=== PATIENT | female | born 1960 | race Caucasian/White ===

== ENCOUNTER 2025-02-10 16:00 | Outpatient (CLI) | payer BC | END 2025-02-10 16:01 | disposition home or self-care (01) | LOC: CSHMAMMO 16:00 | PROVIDERS: ATTEND Specialist | DX: C50.911 Malignant neoplasm of unspecified site of right female breast (principal); N63.12 Unspecified lump in the right breast, upper inner quadrant | CPT/HCPCS: 19083; 96372; A4648; A9697 ==

== ENCOUNTER 2025-03-16 10:36 | Day surgery (SDC) | payer BC ==
[2025-03-16] MEDS ORDERED: Acetaminophen 500 MG TAB ONE (10:59)
[2025-03-16] MEDS ORDERED: Ketorolac Tromethamine 30 MG (1 mL) VIAL ONE (10:59)
[2025-03-16 11:29] LABS: #Basophils 0.03 10x3/uL (0.0-0.2); #Eosinophils 0.33 10x3/uL (0.0-0.5); #Monocytes 0.68 10x3/uL (0.0-1.1); #Neutrophils 1.53 10x3/uL (1.5-8.4); %Basophils 0.7 % (0.0-2.0); %Eosinophils 7.7 % (0.0-6.0); %Lymphocytes 39.8 % (18.0-47.0); %Monocytes 15.9 % (0.0-10.0); %Neutrophils 35.9 % (40.0-75.0); Hematocrit 39.3 % (34.9-44.5); Hemoglobin 12.9 g/dL (12.0-15.5); Mean Corpuscular Hemoglobin 29.6 pg (27.0-33.0); Mean Corpuscular Volume 90.1 fL (81.6-98.3); Platelet Count 217 10x3/uL (150-450); Red Blood Cell (RBC) Count 4.36 10x6/uL (3.90-5.03); White Blood Cell (WBC) Count 4.27 10x3/uL (3.5-10.5)
[2025-03-16 11:52] LABS: Anion Gap 10 mmol/L (10-20); BUN (Urea Nitrogen) 13 mg/dL (9.8-20.1); Calc. Creatinine Clearance 0 mL/min (70-130); Calcium 8.5 mg/dL (7.8-10.44); Carbon Dioxide 27 mmol/L (23-31); Chloride 108 mmol/L (98-107); Glucose 91 mg/dL (80-115); Potassium 3.8 mmol/L (3.5-5.1); Sodium 141 mmol/L (136-145)
[2025-03-16] MEDS ORDERED: Bupivacaine/Epinephrine 0.25% 30 ML VIAL ONE (11:59)
[2025-03-16] MEDS ORDERED: Lidocaine 2% MPF 10 ML AMP (For Epidural Use) ONE (11:59)
[2025-03-16] MEDS ORDERED: PROPOFOL 20 ML ONE (12:20)
[2025-03-16] MEDS ORDERED: Ondansetron PF 4 MG/2 ML Vial ONE (12:20)
[2025-03-16] MEDS ORDERED: Lidocaine 1% PF 5 ML VIAL ONE (12:20)
[2025-03-16] MEDS ORDERED: CEFAZOLIN 2 GM VIAL ONE (12:42)
== END 2025-03-16 14:45 | disposition home or self-care (01) ==
LOC: CSHSDC 10:36
PROVIDERS: ATTEND Specialist
PROC: 0HBT0ZZ Excision of Right Breast, Open Approach (ICD-10-PCS; principal; 2025-03-16)
DX: N62 Hypertrophy of breast (principal); Z88.1 Allergy status to other antibiotic agents; Z88.2 Allergy status to sulfonamides
CPT/HCPCS: 36415; 80048; 85025; 88307; C1713; J1100; J1885; J2405; J2704; J3010

== ENCOUNTER 2025-05-08 10:19 | Outpatient (CLI) | payer BC | END 2025-05-08 10:20 | disposition home or self-care (01) | LOC: CSHRAD 10:19 | PROVIDERS: ATTEND Physician Assistant Medical | DX: M25.551 Pain in right hip (principal); M25.552 Pain in left hip; M16.0 Bilateral primary osteoarthritis of hip; M47.817 Spondylosis without myelopathy or radiculopathy, lumbosacral region | CPT/HCPCS: 73523 ==